=== PATIENT | male | born 2000 | race African-American/Black ===

== ENCOUNTER 2018-11-26 23:26 | Emergency (ER) | payer OTHER ==
[2018-11-27] MEDS ORDERED: IBUPROFEN 400 MG TABLET (FP) PO ONE ×2 (00:47→00:59)
--- NOTE | 2018-11-27 00:47 | PDOC ---
History of Present Illness - General Chief Complaint: Sore Throat Stated Complaint: PAIN Time Seen by Provider: 11/27/18 00:40 History Source: Patient - History of Present Illness Initial Comments: 11/27/18 00:43 18 year old male c/o throat pain , headache, bodyaches, shoulder pain, ear pain. denies chest pain, cough, fever/ chills. pmhx: asthma Past History - Past Medical History Allergies/Adverse Reactions: Allergies Allergy/AdvReac Type Severity Reaction Status Date / Time shellfish derived Allergy Severe ITCHY Verified 11/27/18 00:58 THROAT No Known Drug Allergies Allergy Verified 11/27/18 00:58 Home Medications: Ambulatory Orders Famotidine [Pepcid] 40 mg PO DAILY #30 tablet 05/04/15 Ondansetron [Zofran *Odt*] 4 mg SL TID #30 od.tablet 05/04/15 Asthma: Yes - Immunization History Immunization Up to Date: Yes - Suicide/Smoking/Psychosocial Hx Smoking History: Never smoked Have you smoked in the past 12 months: No Hx Alcohol Use: No Drug/Substance Use Hx: No Substance Use Type: None Review of Systems - Review of Systems Able to Perform ROS?: Yes Is the patient limited Vietnamese proficient: No Constitutional: Yes: Chills. No: Symptoms Reported, See HPI, Diaphoresis, Fever , Loss of Appetite, Malaise, Night Sweats, Weakness, Weight Stable, Unintentional Wgt. Loss, Unexplained wgt Loss, Other HEENTM: Yes: Ear Pain, Throat Pain ABD/GI: No: Symptoms Reported, See HPI, Abdominal Distended, Abd. Pain w/ defecation, Blood Streaked Bowels, Constipated, Diarrhea, Difficulty Swallowing , Nausea, Poor Appetite, Poor Fluid Intake, Rectal Bleeding, Vomiting, Indigestion, Abdominal cramping, Tarry Stools, Other : No: Symptoms Reported, See HPI, Burning, Dysuria, Discharge, Frequency, Flank Pain, Hematuria, Incontinence, Pain, Urgency, Testicular Mass, Testicular Swelling, Lesions, Testicular Pain, Other Neurological: Yes: Headache *Physical Exam - Physical Exam General Appearance: Yes: Appropriately Dressed HEENT: positive: Pharyngeal Erythema Neck: negative: Lymphadenopathy (R), Lymphadenopathy (L) Respiratory/Chest: positive: Lungs Clear, Normal Breath Sounds Gastrointestinal/Abdominal: positive: Normal Bowel Sounds, Soft. negative: Tender Extremity: positive: Normal Capillary Refill, Normal Inspection, Normal Range of Motion Medical Decision Making - Medical Decision Making Strep pharyngitis P: rapid strep ibuprofen la bicillin *DC/Admit/Observation/Transfer Diagnosis at time of Disposition: Strep pharyngitis - Discharge Dispostion Disposition: HOME Condition at time of disposition: Improved - Referrals - Patient Instructions Printed Discharge Instructions: Strep Throat Additional Instructions: gargle with warm salty water take ibuprofen every 6 hours as needed for pain take tylenol every 4 hours as needed for pain throw away toothbrush in 3-4 days do not share cups or utensil with other follow up with your doctor as soon as possible. Additional Instructions: Please call your personal physician to report your Emergency Department visit and to report your progress, if any. If there is no improvement in symptoms in 2 days call your physician. Return to the Emergency Department for any worsening symptoms. - Post Discharge Activity Forms/Work/School Notes: Back to Work
[2018-11-27 00:58] VITALS: BMI 35.9
[2018-11-27] MEDS ORDERED: PENICILLIN G BENZATHINE 1,200,000 UNIT/2 ML PFS IM ONE ×2 (01:28→01:49)
[2018-11-27 01:59] VITALS: BP 117/77; PULSE 90; TEMP 98.9
== END 2018-11-27 01:58 | disposition home or self-care (01) ==
LOC: JER 23:26
DX: J02.0 Streptococcal pharyngitis (principal); J45.909 Unspecified asthma, uncomplicated
CPT/HCPCS: 87880; 99282-25

== ENCOUNTER 2018-12-10 10:30 | Emergency (ER) | payer OTHER | END 2018-12-10 12:23 | disposition home or self-care (01) | LOC: JERFT 10:30 ==

== ENCOUNTER 2019-02-16 23:38 | Emergency (ER) | payer OTHER ==
--- NOTE | 2019-02-17 00:59 | PDOC ---
History of Present Illness - General Chief Complaint: Pain, Acute Stated Complaint: R SIDE ABDOMINAL PAIN History Source: Patient Exam Limitations: No Limitations - History of Present Illness Initial Comments: 02/17/19 00:46 Patient is a 18 year old male with h/o asthma c/o right ear pain since 11 am today. Described the pain as a sharp stabbing intermittent pain 10/10 which is worse with swallowing. Took Advil at 4:30 pm without relief. Also c/o RLQ abd pain since 11 pm. He ate [place] prior to going to self but then woke up with the pain. Thought he had to have use the bathroom for BM, tried to go but was not able. Pain is described as sharp, 10/10 with standing up but is relieved with sitting down. Denies fever, chills, nausea, vomiting, back pain, testicular pain. PMD: Dr Jeanine Morrell PMHX: as above PSOCHXL neg cig, drug, etoh ALL: NKDA, (shelf fish) GENERAL/CONSTITUTIONAL: [No fever or chills. No weakness. No weight change.] HEAD, EYES, EARS, NOSE AND THROAT: [No change in vision. (+) ear pain or discharge. No sore throat.] CARDIOVASCULAR: [No chest pain or shortness of breath.] RESPIRATORY: [No cough, wheezing, or hemoptysis.] GASTROINTESTINAL: [No nausea, vomiting, diarrhea or constipation. No rectal bleeding.] GENITOURINARY: [No dysuria, frequency, or change in urination.] MUSCULOSKELETAL: [No joint or muscle swelling or pain. No neck or back pain.] SKIN AND BREASTS: [No rash or easy bruising.] NEUROLOGIC: [No headache, vertigo, loss of consciousness, or loss of sensation.] PSYCHIATRIC: [No depression or anxiety.] ENDOCRINE: [No increased thirst. No abnormal weight change.] HEMATOLOGIC/LYMPHATIC: [No anemia, easy bleeding, or history of blood clots.] ALLERGIC/IMMUNOLOGIC: [No hives or skin allergy. No latex allergy.] GENERAL: [The patient is awake, alert, and fully oriented, in no acute distress. ] HEAD: [Normal with no signs of trauma.] EYES: [Pupils equal, round and reactive to light, extraocular movements intact, sclera anicteric, conjunctiva clear.] ENT: [Ears normal, nares patent, oropharynx clear without exudates. Moist mucous membranes.] NECK: [Normal range of motion, supple without lymphadenopathy, JVD, or masses.] LUNGS: [Breath sounds equal, clear to auscultation bilaterally. No wheezes, and no crackles.] HEART: [Regular rate and rhythm, normal S1 and S2 without murmur, rub.] ABDOMEN: [Soft, (+) tenderness to the RLQ, normoactive bowel sounds. No guarding, no rebound. No masses.] EXTREMITIES: [Normal range of motion, no edema. No clubbing or cyanosis. No cords, erythema, or tenderness.] NEUROLOGICAL: [Cranial nerves II through XII grossly intact. Normal speech, normal gait.] PSYCH: [Normal mood, normal affect.] SKIN: [Warm, Dry, normal turgor, no rashes or lesions noted.] Past History - Past Medical History Allergies/Adverse Reactions: Allergies Allergy/AdvReac Type Severity Reaction Status Date / Time shellfish derived Allergy Severe ITCHY Verified 02/17/19 01:19 THROAT No Known Drug Allergies Allergy Verified 02/17/19 01:19 Home Medications: Ambulatory Orders Famotidine [Pepcid] 40 mg PO DAILY #30 tablet 05/04/15 Ondansetron [Zofran *Odt*] 4 mg SL TID #30 od.tablet 05/04/15 Cephalexin [Keflex] 500 mg PO QID #28 capsule 12/10/18 Asthma: Yes COPD: No - Immunization History Immunization Up to Date: Yes - Psycho Social/Smoking Cessation Hx Smoking History: Never smoked Have you smoked in the past 12 months: No Hx Alcohol Use: No Drug/Substance Use Hx: No Substance Use Type: None ED Treatment Course - LABORATORY CBC & Chemistry Diagram: 02/17/19 01:20 02/17/19 01:20 Medical Decision Making - Medical Decision Making 02/17/19 00:46 Patient is a 18 year old male with h/o asthma c/o right ear pain since 11 am today. Described the pain as a sharp stabbing intermittent pain 10/10 which is worse with swallowing. Took Advil at 4:30 pm without relief. Also c/o RLQ abd pain since 11 pm. He ate Contreras prior to going to self but then woke up with the pain. Thought he had to have use the bathroom for BM, tried to go but was not able. Pain is described as sharp, 10/10 with standing up but is relieved with sitting down. Denies fever, chills, nausea, vomiting, back pain, testicular pain. DDX: Appendicitis, mesenteric adenitis, renal colic Labs CT abdomen pelvis with oral contrast IV fluids, Toradol 30 mg IV Endorsed to Dr. Sanchez Discharge - Discharge Information Problems reviewed: Yes Clinical Impression/Diagnosis: Right lower quadrant abdominal pain Condition: Stable - Follow up/Referral Referrals: Abdoulaye Morrell MD [Primary Care Provider] - - Patient Discharge Instructions - Post Discharge Activity
[2019-02-17] MEDS ORDERED: SODIUM CHLORIDE 0.9% 500 ML INFUS.BAG IV ONE (01:17)
[2019-02-17] MEDS ORDERED: KETOROLAC TROMETHAMINE 30 MG/1 ML VIAL IVPUSH ONE (01:17)
[2019-02-17 01:19] VITALS: BMI 26.4
[2019-02-17 01:44] LABS: BASO % 0.3 % (0-2.0); EOS % 2.2 % (0-4.5); HEMATOCRIT 41.9 % (35.4-49); HEMOGLOBIN 14.1 GM/dL (11.7-16.9); LYMPH % 26.4 % (8-40); MCHC 33.7 g/dl (32.0-35.9); MEAN CELL VOLUME 85.9 fl (80-96); NEUT % 64.1 % (42.8-82.8); PLATELET COUNT 160 K/MM3 (134-434); RBC 4.87 M/mm3 (4.00-5.60); RDW 13.2 % (11.9-15.9); WHITE BLOOD COUNT 6.8 K/mm3 (4.0-10.0)
[2019-02-17] MEDS ORDERED: KETOROLAC TROMETHAMINE 30 MG/1 ML VIAL ONE (01:44)
[2019-02-17 02:11] LABS: ALBUMIN 4.1 g/dl (3.4-5.0); BILIRUBIN,TOTAL 0.4 mg/dL (0.2-1); BLOOD UREA NITROGEN 15.1 mg/dL (7-18); CALCIUM 8.8 mg/dL (8.5-10.1); CREATININE 1.4 mg/dL (0.55-1.3); TOT PROT 7.4 g/dl (6.4-8.2)
[2019-02-17 02:24] LABS: EPI CELLS 0.2 /HPF (0-5/HPF); HYALINE CASTS 0 /lpf (0-8); PH,URINE 5.5 (5.0-8.0); URINE APPEARANCE CLEAR; URINE BACTERIA 0.2 /hpf (NEGATIVE); URINE BILIRUBIN NEGATIVE (NEGATIVE); URINE COLOR YELLOW; URINE GLUCOSE (UA) NEGATIVE (NEGATIVE); URINE KETONE NEGATIVE (NEGATIVE); URINE LEUK ESTERASE NEGATIVE (NEGATIVE); URINE NITRITE NEGATIVE (NEGATIVE); URINE PROTEIN TRACE (NEGATIVE); URINE RBC 0 /hpf (0-4); URINE UROBILINOGEN 0.2 mg/dL (0.2-1.0); URINE WBC 0 /hpf (0-5)
--- NOTE | 2019-02-17 02:41 | PDOC ---
*Physical Exam - Vital Signs Last Vital Signs Temp Pulse Resp BP Pulse Ox 98.6 F 78 18 121/80 98 02/16/19 23:40 02/16/19 23:40 02/16/19 23:40 02/16/19 23:40 02/16/19 23:40 ED Treatment Course - LABORATORY CBC & Chemistry Diagram: 02/17/19 01:20 02/17/19 01:20 - ADDITIONAL ORDERS Additional order review: Laboratory Results 02/17/19 02/17/19 01:53 01:20 Sodium 140 Potassium 4.0 Chloride 107 Carbon Dioxide 29 Anion Gap 5 L BUN 15.1 Creatinine 1.4 H Est GFR (CKD-EPI)AfAm 83.23 Est GFR (CKD-EPI)NonAf 71.81 Random Glucose 84 Calcium 8.8 Total Bilirubin 0.4 AST 46 H ALT 54 Alkaline Phosphatase 60 Total Protein 7.4 Albumin 4.1 Urine Color Yellow Urine Appearance Clear Urine pH 5.5 Ur Specific [place] 1.009 L Urine Protein Trace Urine Glucose (UA) Negative Urine Ketones Negative Urine Blood 2+ H Urine Nitrite Negative Urine Bilirubin Negative Urine Urobilinogen 0.2 Ur Leukocyte Esterase Negative Urine WBC (Auto) 0 Urine RBC (Auto) 0 Urine Casts (Auto) 0 U Epithel Cells (Auto) 0.2 Urine Bacteria (Auto) 0.2 02/17/19 01:20 RBC 4.87 MCV 85.9 MCHC 33.7 RDW 13.2 MPV 9.0 Neutrophils % 64.1 D Lymphocytes % 26.4 D Monocytes % 7.0 Eosinophils % 2.2 D Basophils % 0.3 - Medications Given in the ED: ED Medications Discontinued Medications Generic Name Dose Route Start Last Admin Trade Name Freq PRN Reason Stop Dose Admin Ketorolac Tromethamine 30 mg 02/17/19 01:17 02/17/19 01:57 Toradol Injection - IVPUSH 02/17/19 01:18 30 mg ONCE ONE Administration Sodium Chloride 1,000 ml 02/17/19 01:17 02/17/19 01:57 Normal Saline - IV 02/17/19 01:18 1,000 ml ONCE ONE Administration Medical Decision Making - Medical Decision Making 02/17/19 02:39 Pt signed out to al; RLQ pain; blood in urine, but no RBCs. Pt likely with an appy We are awaiting CT scan. 02/17/19 05:36 Patient Name: DARBY SHAW THIS IS A PRELIMINARY REPORT FROM [facility] DATE OF SERVICE: 2019-02-17 04:37:07 IMAGES: [id number] EXAM: ABDOMEN \T\ PELVIS CT W/O CONTR HISTORY: Right lower quadrant pain COMPARISON: None. FINDINGS: Lung bases are clear. The visualized cardiac chambers are normal size and configuration. Normal liver, gallbladder, pancreas, spleen, adrenal glands and kidneys. The stomach and abdominal small and large bowel are normal. There is no aortic aneurysm. There is no significant retroperitoneal lymphadenopathy. A small fat-containing umbilical hernia is noted. The pelvic small and large bowel are normal. The appendix is normal. The urinary bladder and prostate gland are normal. No pelvic free fluid is identified. There is no significant pelvic lymphadenopathy. IMPRESSION: No localizing signs for acute pathology. Discharge - Discharge Information Problems reviewed: Yes Clinical Impression/Diagnosis: Right lower quadrant abdominal pain, Viral URI Condition: Stable Disposition: HOME - Admission No - Follow up/Referral Referrals: Abdoulaye Morrell MD [Primary Care Provider] - - Patient Discharge Instructions Patient Printed Discharge Instructions: Common Cold - Post Discharge Activity
[2019-02-17 06:23] VITALS: BP 116/62; PULSE 65; TEMP 98.3
== END 2019-02-17 05:55 | disposition home or self-care (01) ==
LOC: JER 23:38
PROC: 3E0333Z Introduction of Anti-inflammatory into Peripheral Vein, Percutaneous Approach (ICD-10-PCS; principal; 2019-02-16)
DX: J06.9 Acute upper respiratory infection, unspecified (principal); B97.89 Other viral agents as the cause of diseases classified elsewhere; R10.31 Right lower quadrant pain; J45.909 Unspecified asthma, uncomplicated; Z91.013 Allergy to seafood
CPT/HCPCS: 36415; 74176-TC; 80053; 81003; 85025; 99282-25

== ENCOUNTER 2019-05-08 16:51 | Emergency (ER) | payer OTHER ==
[2019-05-08 16:58] VITALS: BP 110/68; PULSE 80; TEMP 98; BMI 29.2
[2019-05-08] MEDS ORDERED: ACETAMINOPHEN 325 MG TABLET (FP) PO ONE (18:04)
[2019-05-08] MEDS ORDERED: ACETAMINOPHEN 325 MG TABLET (FP) ONE (18:07)
--- NOTE | 2019-05-08 18:13 | PDOC ---
History of Present Illness - General Chief Complaint: Sore Throat Stated Complaint: SORE THROAT Time Seen by Provider: 05/08/19 17:56 History Source: Patient Exam Limitations: No Limitations Past History - Travel Traveled outside of the country in the last 30 days: No Close contact w/someone who was outside of country & ill: No - Past Medical History Allergies/Adverse Reactions: Allergies Allergy/AdvReac Type Severity Reaction Status Date / Time shellfish derived Allergy Severe ITCHY Verified 05/08/19 16:55 THROAT No Known Drug Allergies Allergy Verified 05/08/19 16:55 Home Medications: Ambulatory Orders Acetaminophen [Tylenol] 650 mg PO TID PRN 05/08/19 Asthma: Yes COPD: No - Immunization History Immunization Up to Date: Yes - Psycho Social/Smoking Cessation Hx Smoking History: Never smoked Have you smoked in the past 12 months: No Hx Alcohol Use: No Drug/Substance Use Hx: No Substance Use Type: None Review of Systems - Review of Systems Able to Perform ROS?: Yes Comments:: 05/08/19 18:03 CONSTITUTIONAL: Absent: fever, chills, diaphoresis, generalized weakness, malaise, loss of appetite HEENT: Present: Sore throat absent: rhinorrhea, nasal congestion, throat swelling, difficulty swallowing, mouth swelling, ear pain, eye pain, visual Changes CARDIOVASCULAR: Absent: chest pain, loss of consciousness, palpitations, irregular heart rate, peripheral edema RESPIRATORY: Absent: cough, shortness of breath, dyspnea with exertion, orthopnea, wheezing, stridor, hemoptysis GASTROINTESTINAL: Absent: abdominal pain, abdominal distension, nausea, vomiting, diarrhea, constipation, melena, hematochezia GENITOURINARY: Absent: dysuria, frequency, urgency, hesitancy, hematuria, flank pain, genital pain MUSCULOSKELETAL: Absent: myalgia, arthralgia, joint swelling SKIN: Absent: rash, itching, pallor HEMATOLOGIC/IMMUNOLOGIC: Absent: easy bleeding, easy bruising, lymphadenopathy, frequent infections ENDOCRINE: Absent: unexplained weight gain, unexplained weight loss, heat intolerance, cold intolerance NEUROLOGIC: Absent: headache, focal weakness or paresthesias, dizziness, unsteady gait, seizure, mental status changes, bladder or bowel incontinence PSYCHIATRIC: Absent: anxiety, depression, suicidal or homicidal ideation, hallucinations. Is the patient limited Pashto proficient: No *Physical Exam - Vital Signs Last Vital Signs Temp Pulse Resp BP Pulse Ox 98 F 80 18 110/68 99 05/08/19 16:56 05/08/19 16:56 05/08/19 16:56 05/08/19 16:56 05/08/19 16:56 - Physical Exam 05/08/19 18:16 GENERAL: The patient is awake, alert, and fully oriented, in no acute distress. HEAD: Normal with no signs of trauma. EYES: Pupils equal, round and reactive to light, extraocular movements intact, sclera anicteric, conjunctiva clear. HEENT: No nasal congestion or rhinorrhea. No sinus Tenderness. Mucous membranes are moist. (+) tonsillar erythema. No exudate or edema. Uvula is midline. No TM bulging, dullness or erythema EXTREMITIES: Normal range of motion, no edema. NEUROLOGICAL: Normal speech, normal gait. PSYCH: Normal mood, normal affect. SKIN: Warm, Dry, normal turgor, no rashes or lesions noted. Medical Decision Making - Medical Decision Making 05/08/19 18:17 Patient is a 18-year-old male with no past medical history who presents to the ER today with throat pain for 1 week. He also endorses nasal congestion and cough. He is concerned he has strep throat. Denies having a fever. A/P: Pharyngitis On exam patient with mild tonsillar erythema without exudate or edema. Uvula is midline. Rapid strep ordered and sent. Tylenol given for pain Reevaluate 05/08/19 18:53 Strep positive Bicillin given in the ED. Pt had no reaction DC home with supportive therapy and PCP follow up I discussed the physical exam findings, ancillary test results and final diagnoses with the patient. I answered all of the patient's questions. The patient was satisfied with the care received and felt comfortable with the discharge plan and treatment plan. The Patient agrees to follow up with the primary care physician/specialist within 24-72 hours. Return precautions were given. Discharge - Discharge Information Problems reviewed: Yes Clinical Impression/Diagnosis: Strep pharyngitis Condition: Stable Disposition: HOME - Admission No - Follow up/Referral Referrals: Lloyd Burris MD [Staff Physician] - - Patient Discharge Instructions Patient Printed Discharge Instructions: DI for Strep Throat Additional Instructions: You have strep throat. This is a bacterial infection. You were treated with Bicillin today. This is a long-acting antibiotic. You do not need any more antibiotics after today. You may take Motrin 600 mg every 6 hours as needed for pain or fever. Warm water gargles and cough drops and just may also help her symptoms. Please throw way your toothbrush 3 days into treatment to prevent reinfection. Please follow up with your primary care doctor next week. Return to emergency department if you have worsening pain, difficulty swallowing , changes in your voice, lightheadedness, dizziness, or any changes in your symptoms. - Post Discharge Activity Work/Back to School Note: Back to Work
[2019-05-08] MEDS ORDERED: PENICILLIN G BENZATHINE 1,200,000 UNIT/2 ML PFS IM ONE ×2 (18:52→18:53)
== END 2019-05-08 18:57 | disposition home or self-care (01) ==
LOC: JERFT 16:51
DX: J02.0 Streptococcal pharyngitis (principal); B95.0 Streptococcus, group A, as the cause of diseases classified elsewhere
CPT/HCPCS: 87880; 99284-25

== ENCOUNTER 2019-05-15 16:41 | Emergency (ER) | payer OTHER ==
[2019-05-15 16:48] VITALS: BP 135/77; PULSE 69; TEMP 97.8; BMI 32.1
[2019-05-15] MEDS ORDERED: ACETAMINOPHEN 500 MG TABLET (FP) PO ONE (16:50)
--- NOTE | 2019-05-15 16:50 | PDOC ---
Rapid Medical Evaluation Time Seen by Provider: 05/15/19 16:43 Medical Evaluation: Allergies Allergy/AdvReac Type Severity Reaction Status Date / Time shellfish derived Allergy Severe ITCHY Verified 05/08/19 16:55 THROAT No Known Drug Allergies Allergy Verified 05/08/19 16:55 05/15/19 16:43 CC: left testicular pain x4 days. Seen by PMD sunday and had unremarkable w/u. No u/s. PE: deferred Orders: scrotal u/s, urine, Tylenol Patient will proceed to ED for continued evaluation. Discharge Disposition - Diagnosis Left testicular pain - Referrals - Patient Instructions - Post Discharge Activity
[2019-05-15] MEDS ORDERED: DOXYCYCLINE HYCLATE 100 MG CAPSULE PO ONE ×2 (19:30→19:52)
--- NOTE | 2019-05-15 19:34 | PDOC ---
History of Present Illness - General Chief Complaint: Edema Stated Complaint: SWOLLEN/LEFT TESTIS Time Seen by Provider: 05/15/19 16:43 History Source: Patient Exam Limitations: No Limitations Past History - Past Medical History Allergies/Adverse Reactions: Allergies Allergy/AdvReac Type Severity Reaction Status Date / Time shellfish derived Allergy Severe ITCHY Verified 05/15/19 16:44 THROAT No Known Drug Allergies Allergy Verified 05/15/19 16:44 Home Medications: Ambulatory Orders Acetaminophen [Tylenol] 650 mg PO TID PRN 05/08/19 Doxycycline Hyclate 100 mg PO BID #19 tablet 05/15/19 Asthma: Yes COPD: No - Immunization History Immunization Up to Date: Yes - Psycho Social/Smoking Cessation Hx Smoking History: Never smoked Have you smoked in the past 12 months: No Hx Alcohol Use: No Drug/Substance Use Hx: No Substance Use Type: None *Physical Exam - Vital Signs Last Vital Signs Temp Pulse Resp BP Pulse Ox 97.8 F 69 18 135/77 98 05/15/19 16:45 05/15/19 16:45 05/15/19 16:45 05/15/19 16:45 05/15/19 16:45 - Physical Exam General Appearance: No: Apparent Distress Gastrointestinal/Abdominal: positive: Normal Bowel Sounds, Soft. negative: Tender, Distended, Guarding, Rebound Male Genitalia: positive: testicular tenderness (along L side with some swelling ). negative: discharge, hernia Neurologic: positive: Alert ED Treatment Course - Medications Given in the ED: ED Medications Discontinued Medications Generic Name Dose Route Start Last Admin Trade Name Freq PRN Reason Stop Dose Admin Acetaminophen 975 mg 05/15/19 16:50 05/15/19 17:39 Tylenol - PO 05/15/19 16:51 975 mg ONCE ONE Administration Medical Decision Making - Medical Decision Making 18-year-old male history of asthma presents with left testicular pain for 5 days. Patient mentions he does a lot of running and heavy lifting. Saw his primary care doctor for this 3 days ago who did blood work and urine which was normal. Was advised to ice the site and take Motrin as needed for pain. States Motrin does help alleviate the pain. Is is sexually active with 2 partners. Denies fever, abdominal pain, flank pain, nausea, vomiting, dysuria, hematuria, penile discharge. Denies history of STDs. Denies doing anal intercourse. Ultrasound shows evidence of left epididymitis along with a 6 x 3.3 x 1.7 cm inflammatory mass Findings discussed with Dr. Ocampo Inflammatory mass is likely related to the epididymitis Will treat with ceftriaxone and doxycycline Urine GC sent 05/15/19 19:33 Discharge - Discharge Information Problems reviewed: Yes Clinical Impression/Diagnosis: Epididymitis Condition: Stable Disposition: HOME - Admission No - Additional Discharge Information Prescriptions: Doxycycline Hyclate 100 mg PO BID #19 tablet Prescription Drug Monitoring Program (I-STOP) results: I-STOP not reviewed - Follow up/Referral Referrals: Tomi Morrell MD [Primary Care Provider] - 2 Days - Patient Discharge Instructions Patient Printed Discharge Instructions: DI for Epididymitis Additional Instructions: Thank you for choosing [facility]. It was a pleasure taking care of you. You will be reformed regarding results of testing by phone Please refrain from sexual intercourse for 1 week Take antibiotics as prescribed Return to the Emergency Department if your symptoms worsen or persist or have other concerning symptoms. - Post Discharge Activity
[2019-05-15] MEDS ORDERED: cefTRIAXone SODIUM 1 GM VIAL ONE (19:52)
--- NOTE | 2019-05-15 21:04 | PDOC ---
*Physical Exam - Vital Signs Last Vital Signs Temp Pulse Resp BP Pulse Ox 97.8 F 69 18 135/77 98 05/15/19 16:45 05/15/19 16:45 05/15/19 16:45 05/15/19 16:45 05/15/19 16:45 ED Treatment Course - Medications Given in the ED: ED Medications Discontinued Medications Generic Name Dose Route Start Last Admin Trade Name Kassie PRN Reason Stop Dose Admin Acetaminophen 975 mg 05/15/19 16:50 05/15/19 17:39 Tylenol - PO 05/15/19 16:51 975 mg ONCE ONE Administration Ceftriaxone Sodium 250 mg 05/15/19 19:25 05/15/19 19:50 Rocephin - IM 05/15/19 19:26 250 mg ONCE ONE Administration Doxycycline Hyclate 100 mg 05/15/19 19:30 05/15/19 19:50 Vibramycin - PO 05/15/19 19:31 100 mg ONCE ONE Administration Medical Decision Making - Medical Decision Making 05/15/19 21:04 Case discussed, agree with assessment and plan Discharge - Discharge Information Problems reviewed: Yes Clinical Impression/Diagnosis: Epididymitis Condition: Stable Disposition: HOME - Additional Discharge Information Prescriptions: Doxycycline Hyclate 100 mg PO BID #19 tablet - Follow up/Referral Referrals: Tomi Morrell MD [Primary Care Provider] - 2 Days - Patient Discharge Instructions Patient Printed Discharge Instructions: DI for Epididymitis Additional Instructions: Thank you for choosing [facility]. It was a pleasure taking care of you. You will be reformed regarding results of testing by phone Please refrain from sexual intercourse for 1 week Take antibiotics as prescribed Return to the Emergency Department if your symptoms worsen or persist or have other concerning symptoms. - Post Discharge Activity Work/Back to School Note: Back to Work
== END 2019-05-15 20:26 | disposition home or self-care (01) ==
LOC: JER 16:41
DX: N45.1 Epididymitis (principal); Z87.09 Personal history of other diseases of the respiratory system; Z91.013 Allergy to seafood
CPT/HCPCS: 36415; 76870-TC; 87491; 87591; 96372; 99284-25

== ENCOUNTER 2019-10-27 08:34 | Emergency (ER) | payer OTHER ==
[2019-10-27 08:46] VITALS: BP 117/66; PULSE 102; TEMP 98.6; BMI 32.1
[2019-10-27] MEDS ORDERED: AZITHROMYCIN 500 MG TABLET PO ONE (09:17)
--- NOTE | 2019-10-27 09:25 | PDOC ---
History of Present Illness - General Chief Complaint: Penile Drainage Stated Complaint: LAB WORK Time Seen by Provider: 10/27/19 08:48 History Source: Patient Exam Limitations: Clinical Condition - History of Present Illness Initial Comments: 10/27/19 09:21 Patient with no significant past medical history present with complaint of 2 days history of intermittent burning sensation in the penis. Patient report girlfriend tested positive for chlamydia few days ago. Denies penile discharge, rash, urinary frequency, dysuria, testicular pain or swelling. Denies fever, chills, back pain, nausea or vomiting. Denies any other symptoms. Patient has not taken anything for symptoms Is this a multiple visit Asthma Patient?: No Timing/Duration: intermittent, other (2 days) Past History - Medical History Allergies/Adverse Reactions: Allergies Allergy/AdvReac Type Severity Reaction Status Date / Time shellfish derived Allergy Severe ITCHY Verified 05/15/19 16:44 THROAT No Known Drug Allergies Allergy Verified 05/15/19 16:44 Home Medications: Ambulatory Orders Acetaminophen [Tylenol] 650 mg PO TID PRN 05/08/19 Doxycycline Hyclate 100 mg PO BID #19 tablet 05/15/19 Asthma: Yes COPD: No - Immunization History Immunization Up to Date: Yes - Psycho-Social/Smoking History Smoking History: Never smoked Have you smoked in the past 12 months: No Information on smoking cessation initiated: No - Substance Abuse Hx (Audit-C & DAST Scrn) In the last yr the pt used illegal drug/Rx for NonMed reason: No Score: Yes response is considered Positive: 0 Screen Result (Positive result requires Nsg. DAST-10): Negative Review of Systems - Review of Systems Able to Perform ROS?: Yes Is the patient limited Polish proficient: No Constitutional: No: Chills, Fever, Malaise HEENTM: No: Symptoms Reported, See HPI, Eye Pain, Blurred Vision, Tearing, Recent change in vision, Double Vision, Cataracts, Ear Pain, Ocular Prothesis, Ear Discharge, Nose Pain, Nose Congestion, Tinnitus, Nose Bleeding, Hearing Loss, Throat Pain, Throat Swelling, Mouth Pain, Dental Problems, Difficulty Swallowing, Mouth Swelling, Other Respiratory: No: Symptoms reported, See HPI, Cough, Orthopnea, Shortness of Breath, SOB with Exertion, SOB at Rest, Stridor, Wheezing, Productive cough, Hemoptysis, Other Cardiac (ROS): No: Symptoms Reported, See HPI, Chest Pain, Edema, Irregular H eart Rate, Lightheadedness, Palpitations, Syncope, Chest Tightness, Other ABD/GI: No: Symptoms Reported, Nausea, Vomiting : Yes: Symptoms Reported, See HPI, Burning. No: Dysuria, Discharge, Frequency, Flank Pain, Urgency, Testicular Mass, Testicular Swelling, Lesions, Testicular Pain, Other Musculoskeletal: No: Symptoms Reported, Back Pain All Other Systems: Reviewed and Negative *Physical Exam - Vital Signs Last Vital Signs Temp Pulse Resp BP Pulse Ox 98.6 F 102 H 17 117/66 98 10/27/19 08:43 10/27/19 08:43 10/27/19 08:43 10/27/19 08:43 10/27/19 08:43 - Physical Exam General Appearance: Yes: Nourished, Appropriately Dressed. No: Apparent Distress HEENT: positive: Normal ENT Inspection Neck: positive: Supple Respiratory/Chest: positive: Lungs Clear, Normal Breath Sounds. negative: Respiratory Distress, Accessory Muscle Use Gastrointestinal/Abdominal: positive: Normal Bowel Sounds. negative: Tender Male Genitalia: positive: normal genitalia. negative: testicular mass, epididymus tender Musculoskeletal: positive: Normal Inspection Extremity: positive: Normal Inspection, Normal Range of Motion Integumentary: positive: Normal Color Neurologic: positive: Fully Oriented, Alert, Normal Mood/Affect, Normal Response Medical Decision Making - Medical Decision Making 10/27/19 09:21 Patient with no significant past medical history present with complaint of 2 days history of intermittent burning sensation in the penis. Patient report girlfriend tested positive for chlamydia few days ago. Denies penile discharge, rash, urinary frequency, dysuria, testicular pain or swelling. Denies fever, chills, back pain, nausea or vomiting. Denies any other symptoms. Patient has not taken anything for symptoms Clinical exam unremarkable with no testicular pain or swelling and patient in no acute distress. Urine culture, urine GC and chlamydia test sent. Will treat patient empirically on ceftriaxone 250 mg IM and azithromycin 1 g p.o. pending lab result. Patient educated on strict no unprotected sex for at least 4 weeks. Patient stable for discharge with PCP follow-up Discharge - Discharge Information Problems reviewed: Yes Clinical Impression/Diagnosis: Sexually transmitted disease (STD), Penile irritation Condition: Stable Disposition: HOME - Admission No - Follow up/Referral Referrals: Lloyd Lopez MD [Staff Physician] - - Patient Discharge Instructions Patient Printed Discharge Instructions: Facts About Sexually Transmitted Infections Additional Instructions: No unprotected sex for at least 4 weeks. Follow-up referred to urology if symptoms persist for more than 5 days of burning sensation - Post Discharge Activity
[2019-10-27] MEDS ORDERED: AZITHROMYCIN 500 MG TABLET ONE (09:34)
[2019-10-27] MEDS ORDERED: LIDOCAINE HCL 1%, 10 MG/ML (20ML VIAL) ONE (09:35)
== END 2019-10-27 11:08 | disposition home or self-care (01) ==
LOC: JERFT 08:34
DX: A64 Unspecified sexually transmitted disease (principal); R36.9 Urethral discharge, unspecified
CPT/HCPCS: 36415; 87086; 87491; 87591; 99285-25

== ENCOUNTER 2019-12-15 22:50 | Emergency (ER) | payer OTHER ==
[2019-12-15 23:20] VITALS: BP 128/71; PULSE 86; TEMP 98.7; BMI 33.0
--- OUTSIDE RECORDS SUMMARY | 2019-12-15 23:26 | XMS ---
:2000 Author Organization [facility] Support Name Relationship Address Phone UE, UNEMPLOYED Unavailable Unavailable Unavailable UE Unavailable Unavailable Unavailable [employer] Unavailable [address] [place] [address] RASHAWN SHAW MOTHER [address] [place] [address] RASHAWN SHAW Mother [address] [place] [address] Re-disclosure Warning The records that you are about to access may contain information from federally- assisted alcohol or drug abuse programs. If such information is present, then the following federally mandated warning applies: This information has been disclosed to you from records protected by federal confidentiality rules (42 CFR part 2). The federal rules prohibit you from making any further disclosure of this information unless further disclosure is expressly permitted by the written consent of the person to whom it pertains or as otherwise permitted by 42 CFR part 2. A general authorization for the release of medical or other information is NOT sufficient for this purpose. The Federal rules restrict any use of the information to criminally investigate or prosecute any alcohol or drug abuse patient.The records that you are about to access may contain highly sensitive health information, the redisclosure of which is protected by Article 27-F of the [facility] Public Health law. If you continue you may haveaccess to information: Regarding HIV / AIDS; Provided by facilities licensed or operated by the [facility] Office of Mental Health; or Provided by the [facility] Office for People With Developmental Disabilities. If such information is present, then the following [facility] mandated warning applies: This information has been disclosed to you from confidential records which are protected by state law. State law prohibits you from making any further disclosure of this information without the specific written consent of the person to whom it pertains, or as otherwise permitted by law. Any unauthorized further disclosure in violation of state law may result in a fine or fci sentence or both. A general authorization for the release of medical or other information is NOT sufficient authorization for further disclosure. Insurance Providers Payer name Policy type Policy ID Covered Covered libertarian's Policy P haleigh / Coverage libertarian ID relationship to [employer] type [employer] [id number]
--- NOTE | 2019-12-15 23:27 | PDOC ---
History of Present Illness - General Chief Complaint: Urinary Problem Stated Complaint: BURNING ON URINATION Time Seen by Provider: 12/15/19 23:27 History Source: Patient - History of Present Illness Initial Comments: 12/16/19 00:07 19-year-old male complaining of penile discharge and burning for the since this morning. Patient reports that he had unprotected sex with a female partner 3 weeks ago. Unsure of STI exposure. Patient reported that he was treated for an STI 1 month ago. Past medical history of RAD Past History - Medical History Allergies/Adverse Reactions: Allergies Allergy/AdvReac Type Severity Reaction Status Date / Time shellfish derived Allergy Severe ITCHY Verified 05/15/19 16:44 THROAT No Known Drug Allergies Allergy Verified 05/15/19 16:44 Home Medications: Ambulatory Orders Acetaminophen [Tylenol] 650 mg PO TID PRN 05/08/19 Doxycycline Hyclate 100 mg PO BID #19 tablet 05/15/19 Asthma: Yes COPD: No - Immunization History Immunization Up to Date: Yes - Psycho-Social/Smoking History Smoking History: Never smoked Have you smoked in the past 12 months: No - Substance Abuse Hx (Audit-C & DAST Scrn) How often the patient has a drink containing alcohol: Never Score: In Men: 4 or > Positive; In Women: 3 or > Positive: 0 Screen Result (Pos requires Nsg. Audit-10AR): Negative Review of Systems - Review of Systems Able to Perform ROS?: Yes Is the patient limited Faroese proficient: No Constitutional: No: Symptoms Reported, See HPI, Chills, Diaphoresis, Fever, Loss of Appetite, Malaise, Night Sweats, Weakness, Weight Stable, Unintentional Wgt. Loss, Unexplained wgt Loss, Other : Yes: Dysuria. No: Testicular Mass, Testicular Pain *Physical Exam - Vital Signs Last Vital Signs Temp Pulse Resp BP Pulse Ox 98.7 F 86 20 128/71 98 12/15/19 23:00 12/15/19 23:00 12/15/19 23:00 12/15/19 23:00 12/15/19 23:00 - Physical Exam General Appearance: Yes: Appropriately Dressed Male Genitalia: positive: normal genitalia, other (+ yellow/ white penile discharge). negative: testicular tenderness, testicular mass, CVAT Musculoskeletal: positive: Normal Inspection. negative: CVA Tenderness Integumentary: positive: Normal Color, Dry, Warm Neurologic: positive: Fully Oriented, Alert, Normal Mood/Affect ED Progress Note - Progress Note Progress Note: 12/16/19 05:32 A: STD exposure P: GC ua urine culture ceftriaxone azithromycin Discharge - Discharge Information Problems reviewed: Yes Clinical Impression/Diagnosis: Sexually transmitted disease (STD) Condition: Stable Disposition: HOME - Follow up/Referral Referrals: Abdoulaye Morrell MD [Primary Care Provider] - - Patient Discharge Instructions Patient Printed Discharge Instructions: How to Detect and Treat STDs Additional Instructions: Use protection. no sex for one week your partner/s should also need to be treated. we will call you if your test result is positive. you were treated for presumptive Gonorrhea or chlamydia return to the ER for any worsening symptoms. - Post Discharge Activity Work/Back to School Note: Back to Work
--- NOTE | 2019-12-15 23:31 | PDOC ---
*Physical Exam - Vital Signs Last Vital Signs Temp Pulse Resp BP Pulse Ox 98.7 F 86 20 128/71 98 12/15/19 23:00 12/15/19 23:00 12/15/19 23:00 12/15/19 23:00 12/15/19 23:00 Medical Decision Making - Medical Decision Making 12/15/19 23:30 Patient seen by the advanced practice provider under my supervision. Ancillary testing reviewed as necessary. I agree with plan as outlined by the advanced practice provider. Discharge - Follow up/Referral Referrals: Abdoulaye Morrell MD [Primary Care Provider] - - Patient Discharge Instructions - Post Discharge Activity
[2019-12-16] MEDS ORDERED: AZITHROMYCIN 500 MG TABLET PO ONE (00:06)
[2019-12-16] MEDS ORDERED: LIDOCAINE HCL 1%, 10 MG/ML (20ML VIAL) ONE (00:29)
[2019-12-16] MEDS ORDERED: cefTRIAXone SODIUM 1 GM VIAL ONE (00:29)
[2019-12-16] MEDS ORDERED: AZITHROMYCIN 500 MG TABLET ONE (00:35)
[2019-12-16 01:06] LABS: EPI CELLS >36 /uL (0-25.1); HYALINE CASTS 36 /uL (0-3.1); PH,URINE 5.5 (5.0-8.0); URINE APPEARANCE CLEAR; URINE BACTERIA 60 /uL (0-1359); URINE BILIRUBIN NEGATIVE (NEGATIVE); URINE COLOR YELLOW; URINE GLUCOSE (UA) NEGATIVE (NEGATIVE); URINE KETONE NEGATIVE (NEGATIVE); URINE LEUK ESTERASE 1+ (NEGATIVE); URINE NITRITE NEGATIVE (NEGATIVE); URINE PROTEIN NEGATIVE (NEGATIVE); URINE RBC 20 /uL (0-23.9); URINE WBC 407 /uL (0-25.8)
== END 2019-12-16 01:15 | disposition home or self-care (01) ==
LOC: JER 22:50
DX: A64 Unspecified sexually transmitted disease (principal)
CPT/HCPCS: 36415; 81003; 87086; 87491; 87591; 99284-25

== ENCOUNTER 2020-05-08 21:51 | Emergency (ER) | payer OTHER ==
[2020-05-08] MEDS ORDERED: IBUPROFEN 600 MG TABLET (FP) PO ONE ×2 (22:01→22:11)
[2020-05-08 22:10] VITALS: BP 124/65; PULSE 102; TEMP 102.3; BMI 28.3
[2020-05-08 23:30] LABS: THROAT:GRP A STREP Negative (Negative)
== END 2020-05-08 22:57 | disposition home or self-care (01) ==
LOC: JERFT 21:51 → JER 21:51
DX: R50.81 Fever presenting with conditions classified elsewhere (principal); J02.9 Acute pharyngitis, unspecified; M79.10 Myalgia, unspecified site
CPT/HCPCS: 87880; 99283-25; C9803; U0003

== ENCOUNTER 2021-03-24 11:52 | Emergency (ER) | payer OTHER ==
[2021-03-24 12:02] VITALS: BP 127/82; PULSE 64; TEMP 97.9; BMI 28.4
[2021-03-24] MEDS ORDERED: LIDOCAINE 5% TOPICAL PATCH TP ONE (13:52)
[2021-03-24] MEDS ORDERED: KETOROLAC TROMETHAMINE 60 MG/2 ML VIAL IM ONE (13:52)
[2021-03-24] MEDS ORDERED: KETOROLAC TROMETHAMINE 30 MG/1 ML VIAL ONE (13:55)
[2021-03-24] MEDS ORDERED: LIDOCAINE 5% TOPICAL PATCH ONE (13:55)
== END 2021-03-24 14:18 | disposition home or self-care (01) ==
LOC: JER 11:52
PROC: 3E023GC Introduction of Other Therapeutic Substance into Muscle, Percutaneous Approach (ICD-10-PCS; principal; 2021-03-24)
DX: M54.12 Radiculopathy, cervical region (principal)
CPT/HCPCS: 99284-25

== ENCOUNTER 2021-09-06 13:05 | Emergency (ER) | payer OTHER ==
[2021-09-06 13:15] VITALS: BP 116/76; PULSE 82; TEMP 98.6; BMI 30.7
[2021-09-06] MEDS ORDERED: diazePAM 5 MG TABLET PO ONE (14:13)
[2021-09-06] MEDS ORDERED: LIDOCAINE 5% TOPICAL PATCH TP ONE (14:13)
[2021-09-06] MEDS ORDERED: KETOROLAC TROMETHAMINE 30 MG/1 ML VIAL IM ONE (14:13)
[2021-09-06] MEDS ORDERED: LIDOCAINE 5% TOPICAL PATCH ONE (14:18)
[2021-09-06] MEDS ORDERED: KETOROLAC TROMETHAMINE 30 MG/1 ML VIAL ONE (14:18)
[2021-09-06] MEDS ORDERED: diazePAM 5 MG TABLET ONE (14:18)
[2021-09-06] MEDS ORDERED: LIDOCAINE PATCH REMOVAL MC SCH (22:00)
== END 2021-09-06 15:23 | disposition home or self-care (01) ==
LOC: JERFT 13:05
PROC: 3E0233Z Introduction of Anti-inflammatory into Muscle, Percutaneous Approach (ICD-10-PCS; principal; 2021-09-06)
DX: S46.912A Strain of unspecified muscle, fascia and tendon at shoulder and upper arm level, left arm, initial encounter (principal); M25.512 Pain in left shoulder; X50.0XXA Overexertion from strenuous movement or load, initial encounter
CPT/HCPCS: 71046-TC-FY; 73030-TC-LT-FY; 99284-25